=== PATIENT | male | born 1990 | race Caucasian/White ===

== ENCOUNTER 2017-08-10 11:05 | Emergency (ER) | payer BC ==
[2017-08-10 11:19] VITALS: BP 128/66; PULSE 98; RESP 16; TEMP 99.3
--- NOTE | 2017-08-10 11:48 | ED ---
ENT HPI - General Chief complaint: ENT Stated complaint: Abscess Tooth Time Seen by Provider: 08/10/17 11:16 Source: patient Mode of arrival: ambulatory Limitations: no limitations - History of Present Illness Initial comments: Patient is a 26-year-old healthy male who presents with chief complaint of tooth pain. Patient states that he had pain that started 2 days ago. The patient has poor dentition and has not seen a dentist yet. Patient states that it is irritating type pain that is worse with chewing or touching it. There are no alleviating factors. Timing is constant. Patient denies any fever. MD complaint: tooth pain - Related Data Home Medications Medication Instructions Recorded Confirmed Ormzsru-Bdly-Mqsv 315-866-04Hg 2 tab PO DAILY PRN 08/10/17 08/10/17 [Excedrin] Ibuprofen [Motrin] 600 mg PO Q6HR PRN 08/10/17 08/10/17 Previous Rx's Medication Instructions Recorded Acetaminophen-Codeine 300-30mg 1 tab PO Q4H PRN #6 tablet 08/10/17 [Tylenol #3] Penicillin V Potassium [Pen Vee K] 500 mg PO QID 10 Days #40 tablet 08/10/17 Allergies Allergy/AdvReac Type Severity Reaction Status Date / Time No Known Allergies Allergy Verified 08/10/17 11:41 Review of Systems ROS Statement: Those systems with pertinent positive or pertinent negative responses have been documented in the HPI. ROS Other: All systems not noted in ROS Statement are negative. Constitutional: Denies: fever ENT: Reports: dental pain Respiratory: Denies: cough Cardiovascular: Denies: chest pain Gastrointestinal: Denies: abdominal pain, nausea, vomiting Past Medical History Past Medical History: No Reported History History of Any Multi-Drug Resistant Organisms: None Reported Past Surgical History: Orthopedic Surgery Additional Past Surgical History / Comment(s): tib/fib/femur surgery Past Psychological History: ADD/ADHD Smoking Status: Current every day smoker Past Alcohol Use History: None Reported Past Drug Use History: None Reported General Exam Limitations: no limitations General appearance: alert, in no apparent distress Head exam: Present: atraumatic, normocephalic Eye exam: Present: normal appearance ENT exam: Present: other (Patient has numerous dental caries. There is a periodontal abscess at tooth 4 and 5. The abscess area appears to be open as the tooth itself is gone. Patient has mild swelling to the right maxilla. Patient does not have any sublingual tenderness, airway is patent.) Neck exam: Present: normal inspection. Absent: lymphadenopathy, thyromegaly Respiratory exam: Present: normal lung sounds bilaterally Cardiovascular Exam: Present: regular rate, normal rhythm GI/Abdominal exam: Present: soft. Absent: distended, tenderness Neurological exam: Present: alert, oriented X3, normal gait Psychiatric exam: Present: normal affect, normal mood Skin exam: Present: warm, dry, intact Course Vital Signs 08/10/17 11:15 Temperature 99.3 F Pulse Rate 98 Respiratory 16 Rate Blood Pressure 128/66 O2 Sat by Pulse 100 Oximetry Medical Decision Making - Medical Decision Making Patient is a 26-year-old male who presents with a chief complaint of toothache. On visual examination, vital signs are stable. Examination of the mouth shows the patient is a periodontal abscess above tooth 4 and 5. There is no sublingual or neck tenderness. There is no evidence of a spreading soft tissue infection. The patient was placed on amoxicillin and given dental follow-up resources. I discussed the need for follow-up as a dentist is the definitive care that he needs. Patient states understanding. At this time, he is stable for discharge. Disposition Clinical Impression: Periodontal abscess Disposition: HOME SELF-CARE Condition: Good Instructions: Dental Abscess (ED) Prescriptions: Acetaminophen-Codeine 300-30mg [Tylenol #3] 1 tab PO Q4H PRN #6 tablet PRN Reason: Pain Penicillin V Potassium [Pen Vee K] 500 mg PO QID 10 Days #40 tablet Referrals: Yamil Ramírez MD [Primary Care Provider] - 1-2 days
== END 2017-08-10 12:09 | disposition home or self-care (01) ==
LOC: EC 11:05
DX: K05.219 Aggressive periodontitis, localized, unspecified severity (principal); K02.9 Dental caries, unspecified; F17.200 Nicotine dependence, unspecified, uncomplicated
CPT/HCPCS: 99282